=== PATIENT | female | born 2005 | race African-American/Black ===

== ENCOUNTER 2024-04-27 16:12 | Outpatient (CLI) | payer OTHER, SELFPAY ==
[2024-04-27 16:46] LABS: Basophils Percent Auto 0.6 % (0.2-1.2); Eosinophils Absolute Auto 0.2 K/mm3 (0-0.3); Eosinophils Percent Auto 2.4 % (0-4.4); Hemoglobin 13.4 g/dL (12.0-15.0); Immature Granulocyte Absolute 0.03 K/mm3 (0.00-0.031); Immature Granulocyte Percent A 0.4 % (0-0.5); Lymphocytes Absolute Auto 2.26 K/mm3 (0.9-3.2); Lymphocytes Percent Auto 31.4 % (18.3-44.2); Mean Corpuscular HGB Conc 32.7 g/dl (32-36); Mean Corpuscular Volume 79.5 fl (80-100); Mean Platelet Volume 10.7 fl (7.4-10.4); Monocytes Absolute Auto 0.7 K/mm3 (0.1-0.6); Monocytes Percent Auto 9.4 % (2.6-8.5); Neutrophils Percent Auto 55.8 % (45.5-73.1); Platelet Count Result 193 k/mm3 (150-375); Red Blood Count 5.16 M/mm3 (4.2-5.4); Red Cell Distribution Width 18.7 % (11.5-14.5); White Blood Count 7.2 K/mm3 (4.5-10.0)
[2024-04-27 17:03] LABS: Rapid Plasma Reagin Non-Reactive (NonReactive)
[2024-04-27 17:37] LABS: Hepatitis B Surface Antigen Negative (Negative)
[2024-04-27 17:39] LABS: Rubella IgG Antibody > 110.0 IU/ML
== END 2024-04-27 16:13 | disposition home or self-care (01) ==
PROVIDERS: PCP Nurse Practitioner Pediatrics; Visit Provider Student in an Organized Health Care Education/Training Program
DX: N91.2 Amenorrhea, unspecified (principal)
CPT/HCPCS: 36415; 84702; 85025; 85660; 86592; 86644; 86747; 86762; 86787; 86850; 86900; 86901; 87077; 87086; 87088; 87181; 87340

== ENCOUNTER 2024-09-09 15:51 | Outpatient (CLI) | payer OTHER, SELFPAY ==
[2024-09-09 17:20] LABS: Basophils Absolute Auto 0.1 K/mm3 (0.0-0.1); Basophils Percent Auto 0.5 % (0.2-1.2); Eosinophils Absolute Auto 0.1 K/mm3 (0-0.3); Eosinophils Percent Auto 1.4 % (0-4.4); Hematocrit 38.9 % (37.0-47.0); Hemoglobin 12.5 g/dL (12.0-15.0); Immature Granulocyte Absolute 0.13 K/mm3 (0.00-0.031); Immature Granulocyte Percent A 1.3 % (0-0.5); Lymphocytes Percent Auto 19.6 % (18.3-44.2); Mean Corpuscular HGB Conc 32.1 g/dl (32-36); Monocytes Absolute Auto 0.9 K/mm3 (0.1-0.6); Monocytes Percent Auto 9.2 % (2.6-8.5); Neutrophils Absolute Auto 6.9 K/mm3 (1.3-6.7); Platelet Count Result 171 k/mm3 (150-375); Red Blood Count 4.63 M/mm3 (4.2-5.4); Red Cell Distribution Width 13.3 % (11.5-14.5); White Blood Count 10.2 K/mm3 (4.5-10.0)
[2024-09-09 17:30] LABS: Glucose 1 Hour PP 50gm Dose 112 mg/dL
[2024-09-09 18:12] LABS: HIV 1/2 Ab P24 Ag Result Negative (Negative)
[2024-09-10 15:30] LABS: Rapid Plasma Reagin Non-Reactive (NonReactive)
== END 2024-09-09 15:52 | disposition home or self-care (01) ==
LOC: ANHLAB 15:52
PROVIDERS: PCP Nurse Practitioner Pediatrics; Visit Provider Obstetrics & Gynecology
DX: Z34.90 Encounter for supervision of normal pregnancy, unspecified, unspecified trimester (principal)
CPT/HCPCS: 36415; 82947; 85025; 86592; 86703; G0432

== ENCOUNTER 2024-10-07 10:23 | Outpatient (RCR) | payer OTHER, SELFPAY ==
[2024-10-07 10:45] VITALS: BP 113/63; PULSE 88
[2024-10-07 11:00] VITALS: BP 115/73; PULSE 95
[2024-10-07 11:15] VITALS: BP 111/63; PULSE 86
[2024-10-07 11:30] VITALS: BP 119/70; PULSE 86
[2024-10-07 11:45] VITALS: BP 118/58; PULSE 82
[2024-10-07 12:00] VITALS: BP 118/58; PULSE 80
== END 2025-01-05 23:59 | disposition home or self-care (01) ==
LOC: ANHOBOP 10:23
PROVIDERS: PCP Nurse Practitioner Pediatrics; Visit Provider Obstetrics & Gynecology
DX: O36.8130 Decreased fetal movements, third trimester, not applicable or unspecified (principal); Z3A.33 33 weeks gestation of pregnancy
CPT/HCPCS: 59025

== ENCOUNTER 2024-10-29 13:46 | Outpatient (CLI) | payer OTHER, SELFPAY | END 2024-10-29 13:47 | disposition home or self-care (01) | PROVIDERS: PCP Nurse Practitioner Pediatrics; Visit Provider Student in an Organized Health Care Education/Training Program | DX: Z34.83 Encounter for supervision of other normal pregnancy, third trimester (principal) | CPT/HCPCS: 76816 ==

== ENCOUNTER 2024-10-29 21:05 | Inpatient (IN) | payer OTHER, SELFPAY ==
[2024-10-29] VITALS (40 sets, daily range): BP systolic 91–139; BP diastolic 40–106; PULSE 97–153; O2SAT 98–100; BMI 31.1
--- OUTSIDE RECORDS SUMMARY | 2024-10-29 21:42 | XMS_ITS | Patient Health Summary ---
Author Organization [facility] Address [address] [place] [address] Care Team Providers Care Heel Slugger Name Role Phone Mack Cortes MD Primary Care Provider [phone] Note from [facility],non-owned Affiliates and Associated Physician Practices is amultiple site organization consisting of ambulatory clinics and hospital sitesin [place], [place], [place] and [place]. This disclosure is being madepursuant to the Care Everywhere program and may not contain all information available regarding this patient. Last updated 18.[facility] Allergies No known active allergies Medications * Be aware that medications may not be up to date on this document. Alwaysverify current medications with the patient. * albuterol HFA (PROVENTIL;VENTOLIN;PROAIR) 108 (90 BASE) MCG/ACT inhaler (Started 05/03/2012) Inhale 2 Puffs by mouth every 6 hours as needed. 3 refills left * hydrOXYzine hcl (ATARAX) 25 MG tablet(Started 02/20/2016) Take 1 Tab by mouth 4 times daily as needed for Itching * mometasone (ELOCON) 0.1 % ointment(Started 02/20/2016) Apply to affected area once daily 2 refills left * triamcinolone acetonide (KENALOG) 0.1 % ointment(Started 01/22/2018) Apply to affected area 2 times daily * hydrocortisone (HYTONE) 2.5 % ointment(Started 01/22/2018) Apply to affected area 2 times daily OK TO APPLY TO FACE FOR UP TO 2 WEEKS Social History Tobacco Use Types Packs/Day Years Used Date Smoking Tobacco: Never Smokeless Tobacco: Never Alcohol Use Standard Drinks/Week Comments No 0 (1 standard drink = 0.6 oz pur e alcohol) Estimated Date of Delivery Comme nts Yes 11/23/2024 Based on last me nstrual period of 02/17/2024 Sex and Gender Information Value Date Recorded Sex Assigned at Not on file Gender Identity Not on file Sexual Orientation Not on file Last Filed Vital Signs Vital Sign Reading Time Taken Comments Blood Pressure 106/80 01/22/2018 9:16 PM CDT Pulse 80 01/22/2018 9:16 PM CDT Temperature 36.6 C (97.9 F) 01/22/2018 9:16 PM CDT Respiratory Rate 18 01/22/2018 9:16 PM CDT Oxygen Saturation 95% 05/03/2012 2:28 PM CDT Inhaled Oxygen Concentration - - Weight 64.8 kg (142 lb 13.7 oz) 01/22/2018 9:16 PM CDT Height - - Body Mass Index - - Procedures * SONOGRAM - COMPLETE(Performed 08/28/2024) Performed for Encounter for follow-up ultrasound of anatomy ([facility]), Encounter for ultrasound to assess growth ([facility]), Encounter for supervision of normal first in second trimester([facility]), Echogenic intracardiac focus of fetus on ultrasound, 27 weeks gestation of ([facility]) * SONOGRAM - COMPLETE(Performed 07/27/2024) Performed for Encounter for anatomic survey ([facility]), Encounter for supervision of normal first in second trimester ([facility]), Echogenic intracardiac focus of fetus on ultrasound, 23 weeks gestation of ([facility]) Results * SONOGRAM - COMPLETE (08/28/2024 2:29 PM CLINICAL PHARMACY MANAGER) Only the most recent of2 resultswithin the time period is included. Linked Results Indication ======== EIF on outside ultrasound Incomplete anatomic survey History ====== OB History 1. Para 0 Maternal Assessment Physical Exam Height 170 cm, 5 ft 7 in. Weight 89 kg, 197 lb. Initial weight 73 kg, 160 lb. BMI 30.85 kg/m . Initial BMI 25.06 kg/m . Weight gain 17 kg, 37 lb Method ====== Transabdominal ultrasound. View: Sufficient ========= Wu . Number of fetuses: 1 Dating ====== Date Details Gest. age CASE Stated CASE 27 w + 0 d 11/27/2024 Previous U/S 04/22/2024 GA, GA 8 w + 5 d 27 w + 0 d 11/27/2024 U/S 08/28/2024 based upon AC, BPD, Femur, HC 27 w + 6 d 11/21/2024 Assigned dating based on ultrasound (GA), selected on 07/27/2024 27 w + 0 d 11/27/2024 General Evaluation Cardiac activity present. FHR 157 bpm. Presentation: cephalic Placenta: Placental site: posterior Umbilical cord: Cord vessels: 3 vessel cord. Insertion site: normal insertion Amniotic fluid: Amount of AF: normal. MVP 6.5 cm Biometry BPD 71.4 mm 28w 5d 88% Hadlock HC 257.4 mm 28w 0d 55% Hadlock AC 225.9 mm 27w 0d 41% Hadlock Femur 52.1 mm 27w 5d 59% Hadlock Humerus 48.4 mm 28w 3d 84% Joseph HC / AC 1.14 Weight Calculation: EFW 1,078 g 57% Hadlock EFW (lb,oz) 2 lb 6 oz EFW by Hadlock ([id number]) appropriate Growth Overview Exam date GA BPD (mm) HC (mm) AC (mm) FL (mm) HL (mm) EFW (g) 07/27/2024 22w 3d 56.8 80% 207.7 55% 178.3 51% 42.1 80% 38.3 80% 566 77% 08/28/2024 27w 0d 71.4 88% 257.4 55% 225.9 41% 52.1 59% 48.4 84% 1078 57% Anatomy The following structures appear normal: Face Lips. Heart / Thorax 3-vessel view. Abdomen Stomach. Kidneys. Bladder. Spine Cervical spine. Thoracic spine. Lumbar spine. Sacral spine. The following structures were documented previously: Head / Neck Cranium. Lateral ventricles. Choroid plexus. Midline falx. Cavum septi pellucidi. Cerebellum. Cisterna magna. Thalami. Nuchal fold. Face Profile. Nose. Nasal bone. Orbits. Heart / Thorax 4-chamber view. RVOT view. LVOT view. 4-zcinhn-nrxecih view. Situs. Aortic arch view. Bicaval view. Ductal arch view. Great vessels. Right lung. Left lung. Diaphragm. Abdomen Cord insertion. Bowel. Genitals. Extremities / Skeleton Arms. Hands. Legs. Feet. Impression ========= 1) Wu gestation, 27w0d 2) Biometry is consistent with appropriate growth 3) The amniotic fluid volume is within normal limits 4) No abnormalities have been detected on the, now complete, anatomic survey Ultrasound does not allow detection of all structural or genetic abnormalities. Follow-up ultrasound only if clinically indicated Follow-up ======== Follow up as clinically indicated Coding ====== Procedures 23300: US Preg Uterus Follow Up [facility] [employer] PACS Anatomical Region Laterality Modality Other 08/28/2024 2:29 PM CLINICAL PHARMACY MANAGER Avery Sutton MD [facility] ORDERABLES Care Teams Heel Slugger Relationship Specialty Start Date End Date Mack Cortes MD [address] [address] PCP - General Pediatrics 05/03/12
--- OUTSIDE RECORDS SUMMARY | 2024-10-29 21:42 | XMS_ITS | Clinical Summary ---
Author Organization [facility] [employer] Address [address] [place] [address] Care Team Providers Care Rhinologist Name Role Phone Mack Cortes MD Primary Care Provider [phone] Source Comments [facility],non-owned Affiliates and Associated Physician Practices is amultiple site organization consisting of ambulatory clinics and hospital sitesin [place], [place], [place] and [place]. This disclosure is being madepursuant to the Care Everywhere program and may not contain all information available regarding this patient. Last updated 18.[facility] [employer] Allergies No known active allergies Medications * Be aware that medications may not be up to date on this document. Alwaysverify current medications with the patient. Medication Sig Dispensed Refills Start Date End Date Status albuterol HFA (PROVENTIL;VENTOLIN ;PROAIR) 108 (90 BASE) MCG/ACT inhaler Inhale 2 Puffs by mouth every 6 hours as needed. 1 Inhaler 3 05/03/2012 Active hydrOXYzine hcl (ATARAX) 25 MG tablet Take 1 Tab by mouth 4 times daily as needed for Itching 30 Tab 0 02/20/2016 Active Additional Information Patient not taking.Reported on 01/22/2018 mometasone (ELOCON) 0.1 % ointment Apply to affected area once daily 45 g 2 02/20/2016 Active triamcinolone acetonide (KENALOG) 0.1 % ointment Apply to affected area 2 times daily 80 g 01/22/2018 Active hydrocortisone (HYTONE) 2.5 % ointment Apply to affected area 2 times daily OK TO APPLY TO FACE FOR UP TO 2 WEEKS 30 g 01/22/2018 Active Encounters Date Type Department Care Team Description 08/28/2024 2:26 PM VARITYPE OPERATOR - 08/28/2024 11:59 PM VARITYPE OPERATOR Hospital Encounter [facility] & [facility] [address] [place], [place] [id number] Samia Joyce MD Booker, Roldan Buenrostro MD Discharge Disposition: Home or Self Care 08/28/2024 Travel from Last 3 Months Social History Tobacco Use Types Packs/Day Years [...] - - Body Mass Index - - Plan of Treatment Health Maintenance Due Date Last Done Comments PAP SMEAR 2003 HIV SCREENING 2018 HPV VACCINE (1 - 3-dose series) 2018 CHLAMYDIA/GONORRHEA SCREENING 2019 MENINGOCOCCAL (Group B) VACC INE (1 of 2 - Standard) 2019 HEPATITIS C SCREENING 07/10/2021 DTAP/TDAP/TD VACCINES (1 - Tdap) 2022 HEPATITIS B VACCINE (1 of 3 - 19+ 3-dose series) 2022 COVID-19 VACCINE (1 - 2023-2 5 season) 2024 INFLUENZA VACCINE (#1) 2024 OB-ONE HOUR GLUCOSE 08/17/2024 OB-TDAP CURRENT 08/24/2024 OB-RHOGAM INJECTION 08/31/2024 DEPRESSION SCREENING 09/02/2024 OB-GROUP B STREP SCREEN 10/19/2024 ZOSTER VACCINE (1 of 2) 2053 HIB VACCINE Aged Out No longer eligi ble based on patient's age to complete this topic MENINGOCOCCAL VACCINE Aged Out No ashlie marzena eligible based on patient's age to complete this topic PNEUMOCOCCAL VACCINE Aged Out No long er eligible based on patient's age to complete this topic Respiratory Syncytial Virus (RSV) Vaccine Pt: or over 60 yrs (No Doses Required) Completed Procedures Procedure Name Priority Date/Time Associated Diagnosis Comments SONOGRAM - COMPLETE Routine 08/28/2024 2:29 PM VARITYPE OPERATOR Encounter for follow-up ultrasound of anatomy ([facility]) Encounter for ultrasound to assess growth ([facility]) Encounter for supervision of normal first in second trimester ([facility]) Echogenic intracardiac focus of fetus on ultrasound 27 weeks gestation of ([facility]) from Last 3 Months Results * SONOGRAM - COMPLETE (08/28/2024 2:29 PM VARITYPE OPERATOR) Linked Results Indication ======== EIF on outside [...] 2 lb 6 oz EFW by Hadlock ([id number]) appropriate Growth Overview Exam date GA BPD [...] Thorax 4-chamber view. RVOT view. LVOT view. 5-deflhe-chciwov view. Situs. Aortic arch view. Bicaval view. [...] up as clinically indicated Coding ====== Procedures [id number]: US Preg Uterus Follow Up [employer] PACS Anatomical Region Laterality Modality Other 08/28/2024 2:29 PM VARITYPE OPERATOR Avery Sutton MD [facility] ORDERABLES from Last 3 Months Care Teams Rhinologist Relationship Specialty Start Date End Date Mack Cortes MD [address] [facility] [address] [place] [address] PCP - General Pediatrics 05/03/12
--- OUTSIDE RECORDS SUMMARY | 2024-10-29 21:42 | XMS_ITS | Referral Summary ---
Author Organization [facility] Address [address] [place] [address] Care Team Providers Care Fisher Trawl Line Name Role Phone Mack Cortes MD Primary Care Provider [phone] Source Comments [facility],non-owned Affiliates and Associated Physician Practices is amultiple site organization consisting of ambulatory clinics and hospital sitesin [place], [place], [place] and [place]. This disclosure is being madepursuant to the Care Everywhere program and may not contain all information available regarding this patient. Last updated 18.[facility] Encounters Date Type Department Care Team Description 08/28/2024 Travel 08/28/2024 2:26 PM RESIDENCE DIRECTOR - 08/28/2024 11:59 PM RESIDENCE DIRECTOR Hospital Encounter [facility] Women's Health Maternal & Care [address] [place] [address] Samia Joyce MD Booker, Corenthian J, MD Discharge Disposition: Home or Self Care from Last 3 Months Allergies No known active allergies Medications * [...] TO 2 WEEKS 30 g 01/22/2018 Active Social History Tobacco Use Types Packs/Day Years [...] Mass Index - - Plan of Treatment Not on file Procedures Procedure Name Priority Date/Time Associated Diagnosis Comments SONOGRAM - COMPLETE Routine 08/28/2024 2:29 PM RESIDENCE DIRECTOR Encounter for follow-up ultrasound of anatomy ([facility]) Encounter for ultrasound to assess growth ([facility]) Encounter for supervision of normal first in second trimester ([facility]) Echogenic intracardiac focus of fetus on ultrasound 27 weeks gestation of ([facility]) from Last 3 Months Results * SONOGRAM - COMPLETE (08/28/2024 2:29 PM RESIDENCE DIRECTOR) Linked Results Indication ======== EIF on outside [...] 2 lb 6 oz EFW by Hadlock ([id number]) appropriate Growth Overview Exam date GA BPD [...] Thorax 4-chamber view. RVOT view. LVOT view. 6-rpvqzr-qfplela view. Situs. Aortic arch view. Bicaval view. [...] up as clinically indicated Coding ====== Procedures [id number]: US Preg Uterus Follow Up [employer] PACS Anatomical Region Laterality Modality Other 08/28/2024 2:29 PM RESIDENCE DIRECTOR Avery Sutton MD [facility] ORDERABLES from Last 3 Months Care Teams Fisher Trawl Line Relationship Specialty Start Date End Date Mack Cortes MD [address] [place] [address] [address] [place] [address] PCP - General Pediatrics 05/03/12
--- NOTE | 2024-10-29 22:00 | PM.IMHP ---
H&P: HPI History of Present Illness Date/Time: 10/29/24 22:00 Chief Complaint: Leaking Narrative: She is a g1 at 36 weeks with an edc of 11/23 presented with c/o Leaking clear at 1400. Denies contractions. ROM + pos. cervix . PNC uncomplicated. PMFSH Past Medical History Medical History Asthma Social History Social History Smoking status: Never smoker Second hand tobacco smoke exposure: No Alcohol intake: never Substance use: never Substance use type: does not use Do You Feel Safe in your Home?: Yes Lack of Transportation: No Lack of Food: Never True Current Housing: I Have Housing Concerned About Future Housing: No Difficulty Paying Gas/Electric Bills: No Difficulty Paying for Meds: No Currently Unemployed: No Education: High School Diploma/GED Difficulty w/ Childcare or Family Care: No Living arrangements: with family Additional living arrangements comments: single 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 Gender identity (if verbalized by the patient): Female Sexual Orientation (if Verbalized by the Patient): Straight or Heterosexual Meds Home Medications and Allergies Home Medications ?Medication ?Instructions ?Recorded ?Confirmed ?Type vitamin#30 30 mg iron-10 cap PO 03/31/24 10/26/24 History mg iron-folic acid 1 mg-omg3 capsule ondansetron HCl 4 mg tablet 4 mg PO Q6H PRN nausea and 04/28/24 10/26/24 Rx vomiting #30 tabs fluconazole 150 mg tablet 150 mg PO Q72H #2 tabs 10/26/24 10/26/24 Rx Allergies Allergy/AdvReac Type Severity Reaction Status Date / Time No Known Allergies Allergy Verified 10/26/24 10:56 Vital Signs Vital Signs - 24 hr 10/29/24 21:40 10/29/24 21:45 10/29/24 21:50 Pulse Oximetry 99 99 99 10/29/24 21:55 Pulse Oximetry 100 Assessment and Plan Assessment and plan (1) Spontaneous rupture of membranes: Status: Acute Assessment and Plan: . Admit. Ampicillin for GBS prophylaxis.
--- NOTE | 2024-10-29 22:06 | WPDANESEPP ---
Anes - Eval Pre Procedure Procedure: Labor Epidural Date/Time: 10/29/24 22:06 Preop Diagnosis: Labor Pain Pre Op Diagnosis: SROM Patient Data Age: 19 Gender: F Height: 1.7 m Weight: 90 kg Last Vital Signs Pulse 99 10/29/24 22:01 BP 123/106 H 10/29/24 22:01 Pulse Ox 100 10/29/24 22:04 Allergies Allergy/AdvReac Type Severity Reaction Status Date / Time No Known Allergies Allergy Verified 10/26/24 10:56 Home Medications ?Medication ?Instructions ?Recorded ?Confirmed ?Type vitamin#30 30 mg iron-10 cap PO 03/31/24 10/26/24 History mg iron-folic acid 1 mg-omg3 capsule ondansetron HCl 4 mg tablet 4 mg PO Q6H PRN nausea and 04/28/24 10/26/24 Rx vomiting #30 tabs fluconazole 150 mg tablet 150 mg PO Q72H #2 tabs 10/26/24 10/26/24 Rx Patient hx anesthesia problems: none Family hx anesthesia problems: none Results Review: All pre-operative results and documents have been reviewed as part of the pre-operative evaluation. [facility] Past Medical History Medical History Asthma Social History Social History Smoking status: Never smoker Second hand tobacco smoke exposure: No Alcohol intake: never Substance use: never Substance use type: does not use Do You Feel Safe in your Home?: Yes Lack of Transportation: No Lack of Food: Never True Current Housing: I Have Housing Concerned About Future Housing: No Difficulty Paying Gas/Electric Bills: No Difficulty Paying for Meds: No Currently Unemployed: No Education: High School Diploma/GED Difficulty w/ Childcare or Family Care: No Living arrangements: with family Additional living arrangements comments: single 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
[2024-10-29 22:12] LABS: Basophils Percent Auto 0.4 % (0.2-1.2); Eosinophils Absolute Auto 0.1 K/mm3 (0-0.3); Hematocrit 36.2 % (37.0-47.0); Hemoglobin 11.8 g/dL (12.0-15.0); Immature Granulocyte Absolute 0.05 K/mm3 (0.00-0.031); Immature Granulocyte Percent A 0.5 % (0-0.5); Lymphocytes Absolute Auto 2.18 K/mm3 (0.9-3.2); Lymphocytes Percent Auto 21.5 % (18.3-44.2); Mean Corpuscular HGB Conc 32.6 g/dl (32-36); Mean Corpuscular Volume 79.7 fl (80-100); Mean Platelet Volume 11.5 fl (7.4-10.4); Monocytes Absolute Auto 0.9 K/mm3 (0.1-0.6); Monocytes Percent Auto 8.9 % (2.6-8.5); Neutrophils Absolute Auto 6.9 K/mm3 (1.3-6.7); Neutrophils Percent Auto 67.7 % (45.5-73.1); Platelet Count Result 159 k/mm3 (150-375); Red Blood Count 4.54 M/mm3 (4.2-5.4); Red Cell Distribution Width 14.6 % (11.5-14.5); White Blood Count 10.2 K/mm3 (4.5-10.0)
[2024-10-29] MEDS: AMPICILLIN 2 GM/NS 100 ML 2 GM/100 ML BAG IVPB (22:15)
[2024-10-29] MEDS: LACTATED RINGERS 1,000 ML 125 ML IV CONT (22:15)
--- NOTE | 2024-10-29 22:26 | LDADM ---
This patient, Abiodun Gunderson, was admitted to Labor/Delivery/Recovery 107 on 10/29/24 at 21:05. Plans for labor, pain management and were discussed with patient. Patient/family oriented to hospital policies and general routines including ID bracelet, bed and alarms, visiting hours, pain management, procedures, bathroom and other care routines, personal items, smoking policy, room service/diet and guest tray routines, security routines, and visiting hours. Patient/Family are encouraged to report perceived risks to care and to ask questions if they do not understand what they are told or what they should do. See OBIX for further documentation.
[2024-10-29 23:02] LABS: Syphilis IgG/IgM Antibody Negative (Negative)
[2024-10-29 23:06] LABS: HIV 1/2 Ab P24 Ag Result Negative (Negative)
[2024-10-30] VITALS (186 sets, daily range): BP systolic 72–134; BP diastolic 26–91; PULSE 69–122; RESP 16; TEMP 36.8–37.5; O2SAT 88–100
[2024-10-30] MEDS: AMPICILLIN 1 GM/NS 50 ML 1 GM/50 ML BAG IVPB ×2 (02:02→06:15)
[2024-10-30] MEDS: ONDANSETRON INJ 4 MG/2 ML VIAL IV PUSH (04:31)
[2024-10-30] MEDS: OXYTOCIN 30 UNITS/NS 500 ML 30 UNITS/500 ML BAG IV CONT (07:01)
--- NOTE | 2024-10-30 09:02 | PM.OBPRVD ---
OB - Vaginal Delivery Note Procedure Delivery date: 10/30/24 Events: Premature Rupture of Membranes Induction method: None Delivery augmentation: Pitocin Delivery monitor: External FHT and External Uterine Route of delivery: Episiotomy description: None Laceration Description: Labial (left) Delivery repair: vicryl Specimen: Yes (placenta) Quantitative Blood Loss (ml): 150 Anesthesia type: Epidural Disposition: PACU Complications: No immediate complications Narrative: Patient pushed for a spontaneous vaginal delivery. The fetus was delivered atraumatically and placed on the maternal abdomen. The cord was clamped and cut after 1 minute of life. The cord was double clamped and cut and a segment of cord was collected for cord gases. Cord blood was collected for blood type and Coomb's testing. The placenta delivered spontaneously and was noted to be intact. The perineum was inspected and noted to be intact. There was a left labial laceration that was repaired to make hemostatic. The uterus was firm and good hemostasis was noted. [place] Baby Date of : 10/30/24 Gestational Age by Date: 36 gender: Male Weight (pounds): 5 Weight (ounces): 12 presentation: vertex position: Right Occiput Anterior Placenta delivery description: Spontaneous Cord Vessel Description: 3 Vessels score one minute: 8 score five minutes: 9
[2024-10-30] MEDS: OXYTOCIN 30 UNITS/NS 500 ML 30 UNITS/500 ML BAG 125 UNITS IV CONT (09:16)
--- NOTE | 2024-10-30 12:57 | OBPPTRN ---
Patient transferred to post room #290 via wheelchair. Support person present. Oriented to unit, room, information board, rooming in, admission packet and security measures. Patient verbalizes understanding.
[2024-10-30] MEDS: ACETAMINOPHEN 325 MG TABLET 650 MG PO (13:41)
[2024-10-30] MEDS: IBUPROFEN 600 MG TABLET PO (20:40)
[2024-10-31] MEDS: IBUPROFEN 600 MG TABLET PO ×2 (03:40→18:15)
[2024-10-31 05:50] LABS: Hematocrit 33.4 % (37.0-47.0); Hemoglobin 10.7 g/dL (12.0-15.0)
--- NOTE | 2024-10-31 07:53 | P.PNOB_ITS ---
OB - PN: Subj Subjective Date/time seen: 10/31/24 07:53 Patient comments: no complaints, pain well controlled and tolerating diet [place] feeding status: exclusively breast feeding Narrative: patient doing well this AM. No complaints. Pain is well controlled. She reports minimal bleeding. She is ambulating and voiding without difficulty. She is tolerating PO. She denies N/V, fever, chills. OB - PN: Obj Data Labs 10/31/24 05:25 Labs: Laboratory Results - last 24 hr 10/31/24 05:25 Hgb 10.7 L Hct 33.4 L OB - PN A/P Plan day: 1 Plan: routine care Comments: patient doing well H/H stable VSS denies any bleeding issues pain controlled with PO medications Who desires circumcision. Risks, benefits, alternatives reviewed. Will plan for infant circumcision after pediatric evaluation continue routine care Time Spent With Patient Time: Total time spent is greater than 50% in coordination of care (as documented) at patient's floor/unit and/or counseling patient: Time with patient: less than 15 minutes Review of Systems 2 Review of Systems: All systems reviewed & are unremarkable except as noted in HPI and below Exam 2 Const: General: comfortable and no acute distress Resp: Effort & Inspection: normal respiratory effort Cardio: Rate: regular rate GI: GI Palp: Yes Soft to palpation and No Tenderness to palpation present (GI) Auscultation: normal bowel sounds Other: fundus firm and below umbilicus. Psych: Affect: normal affect
[2024-10-31 09:30] VITALS: BP 108/70; PULSE 81; RESP 16; TEMP 36.2; O2SAT 99
--- NOTE | 2024-10-31 09:54 | WPDANLDPN2 ---
Anes-Prog Note L&D Date/Time: 10/31/24 09:54 Comfortable throughout: labor and delivery Neuraxial method: epidural Epidural/Spinal procedure site: clean & non-tender Neuro status: Neuro function grossly intact. Cardiovascular status: normal Respiratory status: normal Airway patency: baseline Mental status: baseline Post-Op hydration status: normal Vital Signs: Last Vital Signs Temp 98.7 F 10/30/24 19:45 Pulse 88 10/30/24 19:45 Resp 16 10/30/24 19:45 BP 126/74 10/30/24 19:45 Pulse Ox 97 10/30/24 19:45 O2 Del Method Room Air 10/30/24 19:45 Pain score (VAS): 0 I/O: Intake & Output 10/30/24 10/31/24 10/31/24 23:59 07:59 15:59 Intake Total 0 Balance 0 Patient feedback: Patient satisfied with anesthetic care.
[2024-10-31] MEDS: ACETAMINOPHEN 325 MG TABLET 650 MG PO (09:59)
[2024-10-31] MEDS: DOCUSATE SODIUM 100 MG CAPSULE PO (18:15)
[2024-10-31 20:30] VITALS: BP 107/65; PULSE 84; RESP 18; TEMP 37; O2SAT 98
[2024-11-01] MEDS: IBUPROFEN 600 MG TABLET PO ×2 (02:20→09:01)
--- NOTE | 2024-11-01 07:34 | PM.OBDSVD ---
DS: Admitting Diagnosis Discharge Date 11/01/24 Admitting Diagnosis PPROM DS: Discharge Diagnosis Discharge Diagnosis (1) Normal vaginal delivery: Code(s): O80 - Encounter for full-term uncomplicated delivery Status: Acute OB - DS: Summary OB Procedures : None OB Procedures Intrapartum: Spontaneous Vag Delivery OB Procedures: : None Peripartum Data Laceration Description: Labial (left) Episiotomy description: None Status at Discharge Functional status at discharge: independent ambulation Overall status at discharge: patient is back to baseline Time Spent with Patient Time attestation: Total time spent providing and/or coordinating discharge services: Time spent: Less than 30 minutes Exam Const: General: comfortable and no acute distress Resp: Effort & Inspection: normal respiratory effort Auscultation: clear to auscultation bilaterally Cardio: Rate: regular rate GI: GI Palp: Yes Soft to palpation Auscultation: normal bowel sounds Other: Fundus firm below umbilicus Psych: Appearance: grossly normal Mental Status: mental status grossly normal Affect: normal affect Discharge Plan Discharge Discharging Clinician: August Giordano Patient Disposition: Home, Self-Care Activity: as tolerated and pelvic rest Diet: regular Patient Instructions: Antibiotic Form, Vaginal Delivery (DC) Patient Language: Qatari Stand Alone Forms: General Discharge Information Follow-up/Referrals: August Giordano MD [Physician] - Discharge Medications: New acetaminophen 500 mg tablet 500 mg PO Q6H PRN (Reason: pain) Qty: 30 0RF ibuprofen 600 mg tablet 600 mg PO Q6H PRN (Reason: pain) Qty: 30 0RF Continued PNV #[id number] 30 mg iron-10 mg iron-1 mg capsule PO Discontinued ondansetron HCl 4 mg tablet 4 mg PO Q6H PRN (Reason: nausea and vomiting) Qty: 30 1RF fluconazole 150 mg tablet 150 mg PO Q72H Qty: 2 0RF Rx Instructions: as a single dose Date of admission: 10/29/24 21:05 Primary Care Provider: Jc,Mago Galvan Admitting Provider: Toma Myers Attending physician on admission: Toma Myers Condition: Stable
--- NOTE | 2024-11-01 08:01 | WPDOBCIRC ---
[place] - Circumcision Consent: Potential risks, benefits, and alternatives have been discussed and questions answered. Family agrees to proceed with circumcision. Preoperative Diagnosis: Normal Foreskin. Postoperative Diagnosis: Normal Foreskin. Date of Circumcision: 11/01/24 Time of Circumcision: 08:00 Type of Circumcision: GOMCO with 1.3 Anesthesia: Ring Block Foreskin: The foreskin was examined and found to be grossly normal. Estimated Blood Loss: Minimal Comment/Other findings: The penis was examined and noted to be grossly normal. A ring block was performed with 1% lidocaine. The foreskin was taken down and the glans was inspected. The urethral meatus was noted to be normal. The circumcision was performed without difficultly with the Gomco clamp. There were no complications and the infant tolerated the procedure well.
[2024-11-01 09:00] VITALS: BP 138/81; PULSE 81; RESP 18; TEMP 36.9
[2024-11-01] MEDS: WITCH HAZEL 40 PADS 1 PAD TOPICAL (09:02)
[2024-11-04 08:38] VITALS: BP 124/70; PULSE 86; RESP 18; TEMP 37; O2SAT 99
--- NOTE | 2024-11-04 10:30 | S_PTH ---
PATIENT: Abiodun Gunderson LOC: [facility] U#:[id number] AGE/SX: 19/F ROOM: 290 RE10/29/[address]: August Giordano MD : 2005 BED: 00 DIS: 11/01/2024 SPEC #: [id number] RECD: 11/04/24 11:10 STATUS: BLAYNE REGrisel #: [id number] LEVI: 11/04/24 10:[address]: August Giordano DEPT: [facility] Surgical RECD BY: Kasie Henao ENTERED: 11/04/24 11:10 SP TYPE: Surgical OTHR DR: Greer Trent, [employer] OFFICER Gabriella Caballero, [employer] OFFICER Mago Greene, [employer] TECHNOLOGY TECHNICIAN Paul Pride MD Tissues: A - Placenta Procedures: Hematoxylin and Eosin Stain Gross and Microscopic Level 5
== END 2024-11-01 14:47 | disposition home or self-care (01) | DRG 560 ==
LOC: ANHOB2 11-01 07:40 → ANHLDR 11-03 13:51 → ANHOB2 11-03 13:51
PROVIDERS: Obstetrics & Gynecology; Admitting Provider Obstetrics & Gynecology; PCP Nurse Practitioner Pediatrics; Visit Provider Student in an Organized Health Care Education/Training Program
DX: O42.013 Preterm premature rupture of membranes, onset of labor within 24 hours of rupture, third trimester (principal); Z37.0 Single live birth; Z3A.36 36 weeks gestation of pregnancy; O70.0 First degree perineal laceration during delivery; O60.14X0 Preterm labor third trimester with preterm delivery third trimester, not applicable or unspecified
CPT/HCPCS: 36415; 76816; 85014; 85018; 85025; 86593; 86703; 86850; 86900; 86901; 88307; A9270; G0432; J0290; J2405; J2590; J2795; J7120